=== PATIENT | female | born 1975 | race African-American/Black ===

== ENCOUNTER 2017-01-07 21:31 | Emergency (ER) | payer MEDICAID ==
[~2017-01-07] VITALS: Ht 157.5 cm; Wt 63.0 kg
[2017-01-08] MEDS ORDERED: TETANUS, DIPHTHERIA, PERTUSSIS VAC/PF 0.5ML (>7YR OLD) IM ONE (03:30)
[2017-01-08 04:00] VITALS: BP 118/86
== END 2017-01-08 04:10 | disposition home or self-care (01) ==
LOC: ER 21:32
DX: M79.605 Pain in left leg (principal); M79.604 Pain in right leg
CPT/HCPCS: 90471; 90715; 99283; Z7610